=== PATIENT | male | born 1960 | race Caucasian/White ===

== ENCOUNTER 2024-07-12 15:32 | Emergency (ER) | payer SELFPAY ==
[~2024-07-12] VITALS: Ht 180.3 cm; Wt 82.0 kg
[2024-07-12 15:34] VITALS: BP 105/77; PULSE 72; RESP 20; TEMP 98.6; O2SAT 94
== END 2024-07-12 22:49 | disposition left against medical advice (07) ==
LOC: ER 15:32
DX: R68.89 Other general symptoms and signs (principal); Z53.21 Procedure and treatment not carried out due to patient leaving prior to being seen by health care provider